=== PATIENT | female | born 1990 | race Caucasian/White ===

== ENCOUNTER 2018-12-19 15:38 | Emergency (ER) | payer MEDICAID ==
[~2018-12-19] VITALS: Ht 162.6 cm; Wt 72.0 kg
[2018-12-19] MEDS ORDERED: AZITHROMYCIN 500 MG TABLET PO ONE (19:45)
[2018-12-19] MEDS ORDERED: CEFTRIAXONE SODIUM 250 MG/VIAL IM ONE (19:45)
[2018-12-19] MEDS ORDERED: ACYCLOVIR 400 MG TABLET PO ONE (19:45)
[2018-12-19] MEDS ORDERED: HYDROCODONE/ACETAMINOPHEN 5/325MG TABLET PO ONE (19:45)
[2018-12-19 21:20] VITALS: BP 116/70
== END 2018-12-19 21:20 | disposition home or self-care (01) ==
LOC: ER 15:38
DX: B00.9 Herpesviral infection, unspecified (principal)
CPT/HCPCS: 96372; 99284; J0696